=== PATIENT | female | born 1980 | race Caucasian/White ===

== ENCOUNTER 2022-08-25 07:55 | Outpatient (CLI) | payer BC, SELFPAY ==
--- NOTE | 2022-08-25 08:15 | CRLHL7_ITS ---
For Patients: As a result of the 21st Century Cures Act, medical imaging exams and procedure reports are released immediately into your electronic medical record. You may view this report before your referring provider. If you have questions, please contact your health care provider. ULTRASOUND-GUIDED LEFT BREAST BIOPSY AND POST-BIOPSY DIGITAL MAMMOGRAM FOR BIOPSY MARKER PLACEMENT, 08/25/2022 CLINICAL HISTORY: Abnormal mammogram. COMPARISON STUDIES: Ultrasound 08/20/2022. TECHNIQUE: Real-time ultrasound with image documentation was used for targeting the breast lesion. Core biopsy specimens were obtained using an automated gun with a 14-gauge biopsy needle. Post-biopsy CC and ML digital mammograms were obtained to document position of the biopsy marker. CONSENT and TIME OUT: The procedure, risks, and alternatives were explained to the patient and a consent was signed. [place] Protocol was followed including pre-procedure verification that relevant information/documentation was available, reviewed and properly matched to the patient; consent accurate and complete; and equipment and supplies available. Time Out was conducted just prior to starting procedure to verify the four required elements: patient identity, correct side/site marked (if applicable), procedure, relevant images/results properly labeled and displayed (if applicable). PROCEDURE: The patient was positioned supine on the ultrasound table. The breast was prepped with Betadine or ChloraPrep. 3 cc of 1% lidocaine was injected for superficial anesthesia and 7 cc of 1% lidocaine with epinephrine was injected for deeper anesthesia. Core samples were obtained. A sterile metal biopsy clip was placed percutaneously to avery the lesion position within the breast. The specimens were placed in 10% formalin and sent to the pathology department. Pressure was held on the biopsy site until all bleeding subsided. The skin incision was closed with Steri-Strips. An ice pack was positioned over the biopsy site. Post-biopsy instructions were reviewed with the patient, and a written copy was given to her. LATERALITY: LEFT LESION: Ill-defined hyperechoic area within the LEFT breast 1 o`clock position, 10 cm from the nipple, measuring 5 x 1.7 x 2.7 cm. SUSPICION FOR MALIGNANCY: Low NUMBER OF SAMPLES: 5 PROXIMITY OF CLIP TO TARGET: On target IMPRESSION: Ultrasound-guided LEFT breast biopsy. When the pathology report is available, an addendum to this report will be made. ACR not applicable. Marlyn Valdivia M.D. Diagnostic/Breast Radiologist [email or web address] RD/Dictated by: Marlyn Valdivia MD @ 08/25/2022 10:40:00 AM ADDENDUM: LEFT breast 1 o`clock 10 cm from the nipple ultrasound-guided core biopsy demonstrates PASH. Negative for atypia or malignancy. Pathology results reviewed with imaging findings and found concordant. Recommend return to yearly screening mammography. Marlyn Valdivia M.D. Diagnostic/Breast Radiologist [facility] TKP:[email or web address] D& Transcribed: 5:20 p.m. [email or web address] Video ----- ADDENDUM ----- IMPRESSION: Pathology consistent with PASH. No evidence of atypia or malignancy. This is concordant. Annual bilateral screening mammography in 1 years time recommended. Dictated by Marlyn Valdivia MD @ Aug 25 2022 10:40AM Signed by:?Marlyn Valdivia MD @08/29/2022 7:02:21 AM (Electronically Signed)
--- NOTE | 2022-08-25 09:00 | CRLHL7_ITS ---
For Patients: As a result of the Century Cures Act, medical imaging exams and procedure reports are released immediately into your electronic medical record. You may view this report before your referring provider. If you have questions, please contact your health care provider. PLEASE SEE LEFT ULTRASOUND-GUIDED BIOPSY OF SAME DAY FOR COMBINED REPORT. CRL:[email or web address] RD/Dictated by: Marlyn Valdivia MD @ 08/25/2022 10:57:00 AM (Electronically Signed)
== END 2022-08-25 07:56 | disposition home or self-care (01) ==
PROVIDERS: PCP Nurse Practitioner Family; Visit Provider Nurse Practitioner Family
DX: R92.8 Other abnormal and inconclusive findings on diagnostic imaging of breast (principal); N64.89 Other specified disorders of breast
CPT/HCPCS: 19083; 77065; 88305; A4648; A4649